=== PATIENT | female | born 1990 | race Caucasian/White ===

== ENCOUNTER 2019-05-18 07:30 | Day surgery (SDC) | payer MEDICAID ==
[~2019-05-18 07:30] MED LIST: DEXAMETHASONE SOD PHOSPHATE INJ 4 MG/1 ML VIAL ONE; FENTANYL CITRATE INJ/PF 100 MCG/2 ML AMPUL ONE; MIDAZOLAM 2 MG/2 ML INJ ONE; ONDANSETRON HCL INJ/PF 4 MG/2 ML SDV ONE; PROPOFOL INJ 200 MG/20 ML VIAL IV ONE
[2019-05-18 08:04] LABS: MEAN CORPUSCULAR HEMOGLOBIN 30.7 pg (27.0-33.4); MEAN CORPUSCULAR HGB CONC 33.4 g/dL (32.0-36.0); MEAN CORPUSCULAR VOLUME 92 fl (80-97); PLATELET COUNT 295 10^3/uL (150-450); RED BLOOD COUNT 4.58 10^6/uL (3.72-5.28); RED CELL DISTRIBUTION WIDTH 11.7 % (11.5-14.0); WHITE BLOOD COUNT 5.9 10^3/uL (4.0-10.5)
[2019-05-18 08:05] LABS: APPEARANCE,URINE CLEAR; BILIRUBIN,URINE NEGATIVE (NEGATIVE); COLOR,URINE STRAW; GLUCOSE, URINE NEGATIVE (NEGATIVE); KETONES,URINE NEGATIVE (NEGATIVE); LEUKOCYTE ESTERASE,URINE LARGE (NEGATIVE); NITRITE,URINE NEGATIVE (NEGATIVE); PROTEIN,URINE NEGATIVE (NEGATIVE); URINE SPECIFIC GRAVITY 1.008; UROBILINOGEN,URINE NEGATIVE mg/dL (<2.0)
[2019-05-18] MEDS ORDERED: PROPOFOL INJ 200 MG/20 ML VIAL IV ONE (08:22)
[2019-05-18] MEDS ORDERED: ONDANSETRON HCL INJ/PF 4 MG/2 ML SDV IV PRN (10:05)
[2019-05-18] MEDS ORDERED: DIPHENHYDRAMINE HCL 50 MG/ML VIAL IV PRN (10:05)
[2019-05-18] MEDS ORDERED: FENTANYL CITRATE INJ/PF 100 MCG/2 ML AMPUL IV PRN ×3 (10:05)
[2019-05-18] MEDS ORDERED: MORPHINE SULFATE 10 MG/ML INJ IV PRN (10:05)
[2019-05-18] MEDS ORDERED: PROMETHAZINE HCL INJ 25 MG/1 ML VIAL IV PRN ×2 (10:05)
[2019-05-18] MEDS ORDERED: MEPERIDINE HCL/PF INJ 25 MG/1 ML DISP.SYRIN IV PRN (10:05)
[2019-05-18] MEDS: FENTANYL CITRATE INJ/PF 100 MCG/2 ML AMPUL ONE ×2 (10:28→10:35)
[2019-05-18] MEDS ORDERED: KETOROLAC TROMETHAMINE INJ/PF 30 MG/1 ML SDV ONE (10:28)
[2019-05-18] MEDS: MORPHINE SULFATE 10 MG/ML INJ ONE ×2 (10:42→10:50)
[2019-05-18] MEDS ORDERED: RINGERS SOLUTION,LACTATED 1,000 ML IV PRN (11:34)
[2019-05-18] MEDS ORDERED: OXYCODONE-ACETAMINOPHEN 5-325 MG TABLET PO PRN ×2 (11:35→11:36)
[2019-05-18] MEDS ORDERED: IBUPROFEN 800 MG TABLET PO PRN (11:35)
[2019-05-18] MEDS ORDERED: OXYCODONE-ACETAMINOPHEN 5-325 MG TABLET ONE (11:37)
[2019-05-18 12:49] VITALS: BP 122/85
--- NOTE | 2019-05-18 13:20 | OPERATIVE REPORT E ---
Operative Report NAME: THAD RUBI : 1990 AGE: 28Y DATE OF SURGERY: 05/18/2019 ROOM: PREOPERATIVE DIAGNOSIS: MISSED . POSTOPERATIVE DIAGNOSIS: MISSED . OPERATION: Suction dilation and curettage. SURGEON: SIL FELTON M.D. ANESTHESIA: Dr. Bray with [facility]. FINDINGS: The uterus sounded to approximately 11 cm. Minimal tissue was obtained. COMPLICATIONS: None. ESTIMATED BLOOD LOSS: 100 mL. SPECIMENS REMOVED: Products of conception. PROCEDURE: The patient was taken to the operating room, prepared and draped in normal sterile fashion in dorsal lithotomy position. Under sterile conditions, in-and-out catheterization was performed with approximately 40 mL of clear urine. A sterile speculum was placed in the vagina and the cervix was prepped with Betadine, grasped on the anterior lip with a single-tooth tenaculum. The uterus was then sounded to the above findings and it was dilated to accommodate an 8 mm curved curette. The curette was then passed and the suction curettage was then performed with minimal tissue obtained. The curette was then removed and a Kevorkian curette with very minimal tissue obtained. The suction curette was then curette was introduced. Good grit was felt in 360 degrees. The suction tubing was passed several more times but no further tissue was obtained and it was felt that the uterus was completely evacuated. The patient tolerated the procedure well. Sponge, lap, and needle counts were correct x2 and the patient was taken to recovery in stable condition. DICTATING PHYSICIAN: SIL FELTON M.D. [id number] PHY#: [id number] ID: [id number] JOB#: [id number] ACCT: [id number] cc:SIL FELTON M.D. >
== END 2019-05-18 12:30 | disposition home or self-care (01) ==
LOC: OROUT 07:30
PROVIDERS: ATTEND Obstetrics & Gynecology
DX: O02.1 Missed abortion (principal)
CPT/HCPCS: 86900; 86901; 36415; 85027; 81001; 88305 ×2; 59820; J2250; J1100; J3010; J1885; J2270; J2405; J2704; 1965